=== PATIENT | female | born 1965 | race Caucasian/White ===

== ENCOUNTER 2016-12-15 18:52 | Emergency (ER) | payer MEDICARE, OTHER ==
[~2016-12-15] VITALS: Ht 163.8 cm; Wt 78.6 kg
[~2016-12-15 18:52] MED LIST: ACYC400T2 PO; ASPI-973 PO; CALC-78 PO; CYCL25CA8 PO; DESM10SP NS; FEBU40TA PO; FURO40TA4 PO; GABA300C PO; INSU100C8 SUBQ; LEVO112T23 PO; MAGN400C PO; METO50TA PO; MYCO500T3 PO; NPH,100V11 SUBQ; OXYC-537 PO; PROT40T PO; VENL75CA2 PO; [UNRECOGNIZED DRUG - CODE] PO; [UNRECOGNIZED DRUG - CODE] PO; atenolol PO; lispro SC; oxycodone PO
[2016-12-15 19:14] VITALS: BP 159/78; PULSE 72; RESP 19; O2SAT 96
[2016-12-15 19:58] LABS: BASOPHILS % (AUTO) 0.2 % (0-3); EOSINOPHILS % (AUTO) 1.5 % (0-5); MONOCYTES % (AUTO) 7.7 % (4-12); Mean Corpuscular Hemoglobin 26.9 pg (27.0-35.0); Mean Corpuscular Volume 81.7 fL (81-100); NEUTROPHILS % (AUTO) 79.8 % (40-74); Platelet Count 102 bil/L (150-400)
[2016-12-15 20:43] VITALS: BP 137/57; PULSE 70; RESP 21; O2SAT 100
--- NOTE | 2016-12-15 21:08 | ED.REPORT ---
HPI-General Illness Date of Service Dec 15, 2016 ED Provider: Pina Rubalcava MD Pt is a 45 year old with a history of HTN and type II DM who presented to the ED complaining of SOB onset 3 days ago. She c/o associated non-productive cough , decreased appetite, rhinorrhea, and wheezing. She denies fever, chills, lower extremity swelling, and sore throat. Pt denies experiencing similar symptoms previously. Per pt, her SOB his exacerbated with lying down. Nursing Notes Stated Complaint: COUGH,WHEEZING,PARTIAL LUNG Chief Complaint: Respiratory Complaints Nursing Notes Reviewed: Yes Allergies: Coded Allergies: Hydantoins (Verified Allergy, Severe, PROFUSE SWEATING,NIGHTMARES, 05/20/12) Penicillins (Verified Allergy, Severe, RASH, 05/20/12) RASH TAPE (Verified Allergy, Severe, 05/20/12) clindamycin (Verified Allergy, Severe, hot flashes, 05/20/12) latex (Verified Allergy, Unknown, RASH,ITCHING, 06/16/14) perflutren (Verified Allergy, Unknown, 06/16/14) PER [facility] - PATIENT EXPERIENCED "strong sudden onset of shortness of breath, nausea, headache, severe back pain and warmth" WHEN SHE RECEIVED THIS MEDICATION. phenytoin (Verified Allergy, Unknown, 04/10/12) RASH acetaminophen (Unverified Adverse Reaction, Severe, Liver transplant, ) Scheduled ([lispro]) 3 U SC AC Take 3 units subcutaneously before meals. ([atenolol]) 10 MG PO DAILY Acyclovir (Acyclovir) 400 Mg Tablet 400 MG PO BID Aspirin (Aspirin) 81 Mg Tablet 81 MG PO DAILY Azathioprine-Expunged Drug, Do Not Renew! (Azathioprine-Expunged Drug, Do Not Renew!) 50 Mg Tab 50 MG PO SEE DIRECTIONS TAKE 1 TABLET (50MG) IN THE AM, AND 1/2 TABLET (25MG) AT BEDTIME. Calcium Carbonate/Vitamin D3 (Calcium 500 + Vit D Caplet) 1 Each Tablet 1 EACH PO DAILY Cyclosporine (Cyclosporine) 25 Mg Capsule 25 MG PO BID Desmopressin (Nonrefrigerated) (Ddavp 0.01% Nasal Carpenter) 10 Mcg/0.1 Ml Carpenter.pump 10 MCG NS BID 1 Carpenter (10 mcg) IN ONE NARE TWO TIMES DAILY, ALTERNATE NARE EVERY OTHER DAY. Febuxostat (Uloric) 40 Mg Tablet 40 MG PO DAILY Furosemide (Furosemide) 40 Mg Tablet 40 MG PO DAILY Gabapentin-Expunged Drug, Do Not Renew! (Neurontin-Expunged Drug, Do Not Renew! ) 300 Mg Capsule 600 MG PO BID HYDROcodone/APAP-Expunged Drug, Do Not Renew! (Vicodin 10/325-Expunged Drug, Do Not Renew!) 1 Tab Tablet 1-2 TAB PO Q4HP PRN Pain Levothyroxine-Expunged Drug, Do Not Renew! (Levoxyl-Expunged Drug, Do Not Renew! ) 112 Mcg Tablet 112 MCG PO DAILY Magnesium Oxide (Magnesium) 400 Mg Capsule 400 MG PO DAILY Metoprolol Tart-Expunged Drug, Do Not Renew! (Metoprolol Tart-Expunged Drug, Do Not Renew!) 50 Mg Tablet 50 MG PO BID Mycophenolate Mofetil (Mycophenolate Mofetil) 500 Mg Tablet 500 MG PO BID Pantoprazole-Expunged Drug, Do Not Renew! (Protonix-Expunged Drug, Do Not Renew! ) 40 Mg Tablet.dr 40 MG PO DAILY Venlafaxine-Expunged Drug, Do Not Renew! (Effexor XR-Expunged Drug, Do Not Renew !) 75 Mg Cap.er 2 CAP PO DAILY Scheduled PRN ([oxycodone]) 5-10 MG PO q3 PRN PRN Oxycodone HCl (Oxaydo) 5 Mg Tablet.orl 5 MG PO ASDIRECTED PRN PRN For Pain Miscellaneous Medications Insulin Aspart (NovoLOG U100 Insulin Vial) 100 U/Ml U 1 UNIT SUBQ NPH, Human Insulin Isophane (HUMulin-N U100 Insulin Vial) 100 Unit/1 Ml Vial 30 UNIT SUBQ General Time Seen by MD: 21:08 Chief Complaint Other (Shortness of breath) Hx Obtained From: Patient Arrived By: Walk-in Sudden in Onset?: No Onset Occurred: 3 days ago Symptom Duration: Since onset Severity: Current: No pain currently Severity: Maximum: No pain Recent Healthcare: No recent doctor visit, No recent hospitalization Similar Sx Previous: No Past Medical History Past Medical History Hypothyroidism HTN GERD DM type II Past Surgical History None reported Smoking History Former Smoker Social History Alcohol Use: "Social" Drug Use: Denies drug use Other Social History: Good social support Ambulatory Status Independent Review of Systems Full Review of Systems Constitutional: Denies: Chills, Fever Ears / Nose / Throat: Denies: Sore throat Respiratory: Reports: Non-productive cough, Shortness of breath, Wheezing Musculoskeletal: Denies: Extremity swelling Allergy / Immune: Reports: Rhinorrhea Complete sys rev & neg: except as marked. Physical Exam Vital Signs Vital Signs Date Time Temp Pulse Resp B/P Pulse Ox O2 Delivery O2 Flow Rate FiO2 12/15/16 23:17 37.9 12/15/16 22:20 70 15 99 Room Air 12/15/16 22:17 70 23 129/59 97 Room Air 12/15/16 21:59 39 12/15/16 20:43 39.3 70 21 137/57 100 12/15/16 19:14 39.2 72 19 159/78 96 Room Air Initial VS: Reviewed Head / Eyes: Atraumatic, Normocephalic Neck: Supple, Full range of motion Cardiovascular: Regular rate & rhythm, Heart sounds normal, Intact distal pulses Extremities: Vascular intact, Neuro intact Skin: Warm, Dry, No cyanosis Neurologic: Alert, Oriented, Nonfocal Psychiatric: Mood/affect normal, Behavior normal General/Constitutional: Awake, Alert Respiratory / Chest: Atraumatic Decreased airation and expiratory wheezes Interpretation & Diagnostics Lab Results Interpretation Result Diagram: 12/15/16194812/15/161948 Test 12/15/16 19:49 White Blood Count 5.9th/mm3 (3.8-10.1) Red Blood Count 4.58mil/mm3 (3.90-5.20) Hemoglobin 12.3g/dL (12.0-15.6) Hematocrit 37.4% (35.0-46.0) Mean Corpuscular Volume 81.7fL (81-100) Mean Corpuscular Hemoglobin 26.9pg (27.0-35.0) Mean Corpuscular Hemoglobin Concent 32.9% (32.0-37.0) Red Cell Distribution Width 14.9% (12.3-15.4) Platelet Count 102bil/L (150-400) Neutrophils (%) (Auto) 79.8% (40-74) Lymphocytes (%) (Auto) 10.6% (14-46) Monocytes (%) (Auto) 7.7% (4-12) Eosinophils (%) (Auto) 1.5% (0-5) Basophils (%) (Auto) 0.2% (0-3) Sodium Level 137mEq/L (134-144) Potassium Level 4.3mEq/L (3.5-5.2) Chloride Level 101mEq/L (97-108) Carbon Dioxide Level 23mmol/L (18-29) Blood Urea Nitrogen 32mg/dL (6-24) Creatinine 1.25mg/dL (0.57-1.00) Estimat Glomerular Filtration Rate 64mL/min (>59) Glucose Level 163mg/dL (60-99) Calcium Level 9.1mg/dL (8.5-10.1) Total Bilirubin 0.5mg/dL (0.0-1.2) Aspartate Amino Transf (AST/SGOT) 15U/L (0-50) Alanine Aminotransferase (ALT/SGPT) 8U/L (0-32) Alkaline Phosphatase 82U/L (25-150) Pro-B-Type Natriuretic Peptide 3644pg/mL (0-249) Total Protein 7.3g/dL (6.4-8.4) Albumin 4.0g/dL (3.4-5.0) Hold Abraham Top Tube Received (Received) ECG Interpretation ECG Interpretation: Atrial-paced complexes Low voltage, precordial leads Probable anteroseptal infarct, old Time: 20:34 Interpreted by: ED physician X-Ray Chest Interpretation Chest Xray Interpretation: IMPRESSION: No acute disease, postsurgical changes stable over time. A source of new cough is not found. Dictated by: Scot Kumar M.D. on 12/15/2016 at 21:09 View: Portable, 1 view Interpretation / Wet Read by: Interpret - Radiologist Re-Eval/Medical Decision Med Decision/Clinical Course The patient's symptoms are consistent with an upper respiratory infection, she does not have pneumonia. A partial list of differential diagnoses considered were pneumonia, congestive heart failure, acute coronary syndrome, influenza, pulmonary embolus, and upper respiratory infection. The patient responded well to albuterol. Source of Hx: Old records Time of Eval: 22:05 Re-Evaluation/Progress Note: Informed pt of plan for breathing treatment and blood test, as well as plan for consultation. Pt understands and agrees with plan. All questions addressed. Time of Eval: 22:54 Patient Status: Condition improved Re-Evaluation/Progress Note: Pt rechecked. Informed pt ECG, x-ray, and of plan for discharge. Pt understands and agrees with plan for discharge. F/U instructions and RTER warnings given. All questions addressed. Counseled Regarding: Diagnosis, Lab results, Need for follow-up, When/why to return to ED Discharge & Departure Primary Impression: URI (upper respiratory infection) URI type: unspecified URI Qualified Code: J06.9 - Acute upper respiratory infection, unspecified Disposition: Home Discharge Condition All VS Reviewed: Yes Condition: Stable Patient Instructions: Upper Respiratory Infection (ED) Additional Instructions: Thank you for entrusting us with your care today. Your x-ray, ECG, and labs were all reassuring. You likely have an upper respiratory infection. Use the spacer. You can use your inhaler up to every 4 hours as needed for breathing difficulty. Call your primary care provider on Saturday for a follow up appointment next week. Return to the emergency department for any new or concerning symptoms such as increased difficulty breathing. Referrals: [facility] (PCP) Neriibe Attestation Portions of this note were transcribed by Inga Marcano. I, Dr. Rubalcava personally performed the history, physical exam and medical decision-making; I reviewed and confirmed the accuracy of the information in the transcribed note. Signed by : Lidia Sanches, 12/15/16. copies to: KENNETH LUA Jena M MD Dec 15, 2016 21:08 Inga Schulte Dec 15, 2016 21:32
--- NOTE | 2016-12-15 21:11 | DRSVH ---
PROCEDURE: X-RAY CHEST ONE VIEW, PORTABLE ([id number]) INDICATIONS: COUGH TECHNIQUE: One view of the chest was acquired. COMPARISON: [facility], , CHEST 2VW, 06/23/2012, 15:25. FINDINGS: Surgical changes and devices: Sternotomy wires, prior CABG, cardiac pacemaking device and dual chamb er leads normal. Pulmonary staple line superior lateral right hemithorax.. Lungs and pleura: No pleural effusions or pneumothorax. Lungs are clear. Mediastinum: Mediastinal contours appear normal. Heart size is normal. Bones and chest wall: No suspicious bony lesions. Overlying soft tissues appear unremarkable. IMPRESSION: No acute disease, postsurgical changes stable over time. A source of new cough is not f ound. Dictated by: Scot Kumar M.D. on 12/15/2016 at 21:09 Approved by: Scot Kumar M.D. on 12/15/2016 at 21:09
[2016-12-15] MEDS ORDERED: Albuterol 2.5 mg/3 mL Inhalation Solution NEB ONE (22:10)
[2016-12-15 22:17] VITALS: BP 129/59; PULSE 70; RESP 23; O2SAT 97
[2016-12-15 22:20] VITALS: PULSE 70; RESP 15; O2SAT 99
[2016-12-15] MEDS ORDERED: _Albuterol-HFA 60 Puff Inhaler INHALATION PRN (22:50)
== END 2016-12-15 23:18 | disposition home or self-care (01) ==
LOC: SED 18:52
DX: J06.9 Acute upper respiratory infection, unspecified (principal); I10 Essential (primary) hypertension; K21.9 Gastro-esophageal reflux disease without esophagitis; E03.9 Hypothyroidism, unspecified; E11.9 Type 2 diabetes mellitus without complications; Z87.891 Personal history of nicotine dependence; Z79.82 Long term (current) use of aspirin; Z79.4 Long term (current) use of insulin; Z88.0 Allergy status to penicillin; Z88.1 Allergy status to other antibiotic agents; Z88.8 Allergy status to other drugs, medicaments and biological substances; Z91.040 Latex allergy status
CPT/HCPCS: 36415; 71010; 80053; 83880; 85025; 93005; 94640; 94664; 99285; J7613